=== PATIENT | female | born 1985 | race Caucasian/White ===

== ENCOUNTER 2021-06-19 14:26 | Inpatient (IN) ==
[2021-06-19] MEDS ORDERED: Piperacillin/Tazobactam 3.375 GM in 0.9 % Sodium Chloride Mini Bag 100 ML IVPB ONE (15:37)
[2021-06-19] MEDS ORDERED: Vancomycin 1,500 MG/265 ML IV.SOLN IVPB ONE (16:00)
[2021-06-19] MEDS ORDERED: Ondansetron 4 MG/2 ML VIAL IVP PRN (17:04)
[2021-06-19] MEDS ORDERED: Metoclopramide 10 MG/2 ML VIAL IVP PRN (17:04)
[2021-06-19] MEDS: Acetaminophen 325 MG TABLET PO SCH ×2 (17:48→23:58)
[2021-06-19] MEDS: Ringers Solution, Lactated 1,000 ML IVC SCH (17:49)
[2021-06-19] MEDS: Ibuprofen 600 MG TABLET PO SCH (20:05)
[2021-06-19] MEDS: Nicotine 21 MG PATCH.TD24 TD SCH (21:03)
[2021-06-19 22:01] LABS: BUN/Creatinine Ratio 9 (6-26); Blood Urea Nitrogen 7 mg/dL (6-20); eGFR For African Americans > 60 (> 60); eGFR For Non-African Americans > 60 (> 60)
[2021-06-19] MEDS: Piperacillin/Tazobactam 3.375 GM in 0.9 % Sodium Chloride Mini Bag 100 ML IVPB SCH (23:57)
[2021-06-20] MEDS: Vancomycin 1,500 MG/265 ML IV.SOLN IVPB SCH ×2 (04:08→16:35)
[2021-06-20] MEDS: Ibuprofen 600 MG TABLET PO SCH ×3 (04:10→16:01)
[2021-06-20] MEDS: Ringers Solution, Lactated 1,000 ML IVC SCH ×2 (05:54→16:01)
[2021-06-20] MEDS: Acetaminophen 325 MG TABLET PO SCH ×2 (06:00→12:08)
[2021-06-20] MEDS: Piperacillin/Tazobactam 3.375 GM in 0.9 % Sodium Chloride Mini Bag 100 ML IVPB SCH ×2 (07:48→16:00)
[2021-06-20] MEDS: Nicotine 21 MG PATCH.TD24 TD SCH (07:49)
[2021-06-20] MEDS ORDERED: Lidocaine/EPI 1:100k 1% 30 ML VIAL INFILT ONE (08:36)
[2021-06-20] MEDS: *HR* OxyCODONE Immed Rel 5 MG TABLET PO PRN (08:38)
[2021-06-21] MEDS: Piperacillin/Tazobactam 3.375 GM in 0.9 % Sodium Chloride Mini Bag 100 ML IVPB SCH ×3 (00:15→16:52)
[2021-06-21] MEDS: Ibuprofen 600 MG TABLET PO SCH ×4 (00:16→16:59)
[2021-06-21] MEDS: Acetaminophen 325 MG TABLET PO SCH ×5 (00:16→16:59)
[2021-06-21] MEDS: Ringers Solution, Lactated 1,000 ML IVC SCH ×4 (02:00→22:03)
[2021-06-21 03:37] LABS: Vancomycin,Trough 7 mcg/mL (5-10)
[2021-06-21] MEDS: Vancomycin 1,750 MG/517.5 ML IV.SOLN IVPB SCH ×2 (04:39→16:53)
[2021-06-21] MEDS: Vancomycin 1,500 MG/265 ML IV.SOLN IVPB SCH (07:36)
[2021-06-21 08:36] LABS: eGFR For African Americans > 60 (> 60); eGFR For Non-African Americans > 60 (> 60)
[2021-06-21] MEDS: Nicotine 21 MG PATCH.TD24 TD SCH (08:48)
[2021-06-21] MEDS ORDERED: Lidocaine/EPI 1:100k 1% 30 ML VIAL INFILT ONE (09:47)
[2021-06-21] MEDS: *HR* OxyCODONE Immed Rel 5 MG TABLET PO PRN (10:31)
[2021-06-21] MEDS ORDERED: Benzocaine/Menthol 56 GM AEROSOL SPRAY TP PRN (12:08)
[2021-06-21] MEDS ORDERED: Ringers Solution, Lactated 1,000 ML IVC SCH (22:15)
[2021-06-22] MEDS: Piperacillin/Tazobactam 3.375 GM in 0.9 % Sodium Chloride Mini Bag 100 ML IVPB SCH ×3 (00:04→17:04)
[2021-06-22] MEDS: Acetaminophen 325 MG TABLET PO SCH ×3 (00:09→19:14)
[2021-06-22] MEDS: Vancomycin 1,750 MG/517.5 ML IV.SOLN IVPB SCH (05:00)
[2021-06-22] MEDS: Nicotine 21 MG PATCH.TD24 TD SCH (08:36)
[2021-06-22] MEDS: Ibuprofen 600 MG TABLET PO SCH ×2 (13:33→15:28)
[2021-06-22] MEDS: Vancomycin 2,000 MG/520 ML IV.SOLN IVPB SCH (18:52)
[2021-06-23] MEDS: Piperacillin/Tazobactam 3.375 GM in 0.9 % Sodium Chloride Mini Bag 100 ML IVPB SCH (00:44)
[2021-06-23] MEDS: Vancomycin 2,000 MG/520 ML IV.SOLN IVPB SCH (06:26)
[2021-06-23] MEDS: Acetaminophen 325 MG TABLET PO SCH (06:33)
[2021-06-23] MEDS: Ibuprofen 600 MG TABLET PO SCH ×2 (06:33)
[2021-06-23 06:41] VITALS: BP 115/74; PULSE 68; TEMP 98.2; O2SAT 96
== END 2021-06-23 09:00 | disposition home or self-care (01) | DRG 761 ==
LOC: EMEROOARM 14:26 → 1NENUOBS 14:26
PROVIDERS: ADMIT Student in an Organized Health Care Education/Training Program; ATTEND Student in an Organized Health Care Education/Training Program